=== PATIENT | male | born 1985 | race African-American/Black ===

== ENCOUNTER 2023-12-04 10:36 | Emergency (ER) | payer SELFPAY ==
[~2023-12-04] VITALS: Ht 203.2 cm; Wt 118.0 kg
[2023-12-04 10:51] VITALS: O2SAT 99
[2023-12-04 11:06] LABS: HEMATOCRIT. 42.9 % (42.0-52.0); HEMOGLOBIN. 14.3 g/dL (14.0-18.0); MEAN CORPUSCULAR HEMOGLOBIN 30.9 pg (28.0-32.0); MEAN CORPUSCULAR HGB CONC 33.3 g/dL (31.0-37.0); MEAN CORPUSCULAR VOLUME 92.7 fL (80.0-94.0); MEAN PLATELET VOLUME 7.8 fl (7.4-10.4); PLATELET 374 x1000/uL (130-400); RED BLOOD CELL COUNT 4.63 mill/uL (4.7-6.1); RED CELL DISTRIBUTION WIDTH 13.1 % (11.6-14.6); WHITE BLOOD COUNT 25.7 x1000/uL (4.5-11.0)
[2023-12-04 11:17] LABS: CHLORIDE 97 mEq/L (98-107); POTASSIUM 3.6 mEq/L (3.5-5.1); SODIUM 134 mEq/L (136-145)
[2023-12-04 11:18] LABS: CALCIUM 9.2 mg/dL (8.7-10.4); CARBON DIOXIDE 27 mEq/L (21-32)
[2023-12-04 11:23] LABS: CREATININE 1.1 mg/dL (0.6-1.3); GLUCOSE 106 mg/dL (70-105); UREA NITROGEN BLOOD 6 mg/dL (9-23)
[2023-12-04 11:44] LABS: TROPONIN I HIGH SENSITIVITY < 4 ng/L (3.0-53)
[2023-12-04 11:51] LABS: DIFFERENTIAL COMMENT 1
[2023-12-04 12:58] LABS: PLATELET ESTIMATE NORMAL
[2023-12-04] MEDS: ACETAMINOPHEN 325MG TABLET PO ONE (13:40)
[2023-12-04] MEDS: ONDANSETRON HCL 4MG/2ML INJ IV STA (13:43)
[2023-12-04] MEDS: SODIUM CHLORIDE 0.9% 1,000 ML IV ONE (13:43)
[2023-12-04 15:20] VITALS: BP 131/66; PULSE 59; RESP 18; TEMP 98.9
[2023-12-04] MEDS ORDERED: AZIT500T8 MT (15:29)
== END 2023-12-04 15:45 | disposition home or self-care (01) ==
LOC: ER 10:36
DX: J18.9 Pneumonia, unspecified organism (principal); D72.829 Elevated white blood cell count, unspecified; G43.909 Migraine, unspecified, not intractable, without status migrainosus
CPT/HCPCS: 99285; 96374; 71045; 96361; 80048; 85025; 84484; 36415; 93005; J2405; J7030